=== PATIENT | male | born 1935 | race Caucasian/White ===

== ENCOUNTER 2016-11-29 14:15 | Outpatient (CLI) | payer OTHER | END 2016-11-29 23:00 | LOC: LAB SRH 14:15 | DX: E11.9 Type 2 diabetes mellitus without complications (principal); I10 Essential (primary) hypertension | CPT/HCPCS: 90074; 90100; 91286; 91610 ==

== ENCOUNTER 2017-03-11 13:27 | Outpatient (CLI) | payer OTHER | END 2017-03-11 23:00 | LOC: LAB SRH 13:27 | DX: E11.9 Type 2 diabetes mellitus without complications (principal) | CPT/HCPCS: 90074; 91286 ==